=== PATIENT | female | born 1995 | race Caucasian/White ===

== ENCOUNTER 2016-12-07 12:06 | Emergency (ER) | payer BC ==
--- NOTE | 2016-12-07 12:31 | ED Physician Documentation ---
General Adult - HISTORIAN Historian: patient - HPI Stated Complaint: body aches, vomiting, nausea Chief Complaint: General Adult Additional Information: ache all over chills onset 3-4 days ago left work yesterday-had n/e then denies sexually active-no flu vaccine/works as bar useful or busser-some headache no cough left work yesterday am dt n/e fdlmp=sept Onset: days ago (2) Timing: still present Severity: moderate Further Comments: yes (does not eat breakfast---eats sleeps ok) Last known Well Code/Unknown Code: Known - ROS CONST: weakness. denies: weight loss EYES/ENT: denies: problems with vision CVS/RESP: denies: chest pain, shortness of breath, cough GI/: vomiting, nausea. denies: diarrhea, black stools MS/SKIN/LYMPH: none NEURO/PSYCH: headache - PAST HX Past History: none Other History: none Surgeries/Procedures: none Immunizations: UTD (no flu vaccine) Allergies/Adverse Reactions: Allergies Allergy/AdvReac Type Severity Reaction Status Date / Time No Known Allergies Allergy Verified 12/07/16 12:24 Home Medications: Ambulatory Orders Medication Instructions Recorded Ondansetron HCl Rapdis [Zofran Odt] 4 mg PO Q4 PRN #12 tab 12/07/16 - SOCIAL HX Smoking History: non-smoker Alcohol Use: none Drug Use: none - FAMILY HX Family History: Yes (parents siblings l/w) - VITAL SIGNS Vital Signs: Vital Signs Temp Pulse Resp BP Pulse Ox 98.4 F 64 16 127/65 99 12/07/16 12:19 12/07/16 12:19 12/07/16 12:19 12/07/16 12:19 12/07/16 12:19 - REVIEWED ASSESSMENTS Nursing Assessment Reviewed: Yes Vitals Reviewed: Yes ED Results Lab/Radiology - Orders Orders: ED Orders Category Date Time Status CBC/PLATELET/DIFF Routine Lab 12/07/16 Ordered CMP Routine Lab 12/07/16 Ordered INFLUENZA A&B Routine Lab 12/07/16 Uncollected SERUM HCG Routine Lab 12/07/16 Ordered URINALYSIS Routine Lab 12/07/16 Ordered General Adult Physical Exam - PHYSICAL EXAM GENERAL APPEARANCE: mild distress NEURO: oriented X3, CN's nml as tested Discharge Clincal Impression: Viral syndrome Prescriptions: Ondansetron HCl Rapdis [Zofran Odt] 4 mg PO Q4 PRN #12 tab PRN Reason: Nausea / Vomiting Referrals: Primary Doctor,No [Primary Care Provider] - 2 Days Condition: Good Disposition: 01 HOME, SELF-CARE Decision to Admit: NO Decision Time: 13:43
[2016-12-07] MEDS ORDERED: ONDANSETRON HCL/PF 4 MG/ 2ML VIAL ONE (12:36)
[2016-12-07] MEDS ORDERED: 0.9 % SODIUM CHLORIDE 1,000 ML IV ONE (12:36)
[2016-12-07] MEDS: 0.9 % SODIUM CHLORIDE 1,000 ML IV ONE (12:40)
[2016-12-07] MEDS: ONDANSETRON HCL/PF 4 MG/ 2ML VIAL IVP ONE (12:40)
[2016-12-07 12:56] LABS: BASOPHILS % 0.2 (0.0-1.5); EOSINOPHILS % 0.7 % (0.0-6.8); MEAN CORPUSCULAR HEMOGLOBIN 26.6 pg (28.0-34.0); MEAN CORPUSCULAR VOLUME 84.7 fl (80.0-100.0); MONOCYTES % 11.9 % (0.0-11.0); NEUTROPHILS # 3.6 # k/uL (1.4-7.7)
[2016-12-07 13:09] LABS: eGFR (African) > 60; eGFR (Non-African) > 60
[2016-12-07 13:56] VITALS: BP 99/53
== END 2016-12-07 13:45 | disposition home or self-care (01) ==
LOC: ED 12:06
DX: B34.9 Viral infection, unspecified (principal)
CPT/HCPCS: 80053; 84703; 85025; J2405; J7030; 87400; 96361; 96374; 99283; S1016

== ENCOUNTER 2016-12-19 23:45 | Emergency (ER) | payer BC ==
[2016-12-20] MEDS ORDERED: 0.9 % SODIUM CHLORIDE 250 ML IV.SOLN IV ONE (00:08)
[2016-12-20] MEDS ORDERED: 0.9 % SODIUM CHLORIDE 1,000 ML IV ONE ×2 (00:24→00:30)
[2016-12-20 00:30] LABS: BASOPHILS % 0.5 (0.0-1.5); EOSINOPHILS % 0.9 % (0.0-6.8); MEAN CORPUSCULAR HEMOGLOBIN 26.7 pg (28.0-34.0); MEAN CORPUSCULAR VOLUME 85.1 fl (80.0-100.0); MONOCYTES % 2.8 % (0.0-11.0); NEUTROPHILS # 9.7 # k/uL (1.4-7.7)
[2016-12-20 00:42] LABS: eGFR (African) > 60; eGFR (Non-African) > 60
--- NOTE | 2016-12-20 01:59 | ED Physician Documentation ---
General Adult - HISTORIAN Historian: patient - HPI Stated Complaint: ABD PAIN Chief Complaint: General Adult Additional Information: Daily diarrhea every time she eats, occasional vomiting, began 9 days ago. Has a lot on her mind so hasn't been eating or drinking much. Low abdominal pain bilaterally that is cramping in nature. LNMP within last 2-10 days (gives different stories). - ROS CONST: no problems - PAST HX Past History: other (previous similar episode a few weeks ago. ) Allergies/Adverse Reactions: Allergies Allergy/AdvReac Type Severity Reaction Status Date / Time No Known Allergies Allergy Verified 12/20/16 00:07 - SOCIAL HX Smoking History: non-smoker Alcohol Use: none Drug Use: none - FAMILY HX Family History: No - VITAL SIGNS Vital Signs: Vital Signs Temp Pulse Resp BP Pulse Ox 98.4 F 54 L 16 115/64 100 12/19/16 23:45 12/19/16 23:45 12/19/16 23:45 12/19/16 23:45 12/19/16 23:45 - REVIEWED ASSESSMENTS Nursing Assessment Reviewed: Yes Vitals Reviewed: Yes Progress - Progress Progress: 0200, Feels much better. ED Results Lab/Radiology - Lab Results Lab Results: Lab Results 12/20/16 12/20/16 12/20/16 00:17 00:17 00:01 WBC 12.60 K/ul H K/ul (4.00-12.00) RBC 4.51 M/ul M/ul (3.90-5.20) Hgb 12.1 g/dL g/dL (12.0-16.0) Hct 38.4 % % (34.5-46.5) MCV 85.1 fl fl (80.0-100.0) MCH 26.7 pg L pg (28.0-34.0) MCHC 31.4 g/dL g/dL (30.0-36.0) RDW 13.6 % % (11.3-14.3) Plt Count 275 K/mm3 K/mm3 (130-400) Neut % (Auto) 77.5 % % (39.0-79.0) Lymph % (Auto) 17.5 % % (16.0-50.0) [place] % (Auto) 2.8 % % (0.0-11.0) Eos % (Auto) 0.9 % % (0.0-6.8) Baso % (Auto) 0.5 (0.0-1.5) Neut # (Auto) 9.7 # k/uL H # k/uL (1.4-7.7) Lymph # (Auto) 2.2 # k/uL # k/uL (0.6-4.0) [place] # (Auto) 0.4 # k/uL # k/uL (0.0-0.9) Eos # (Auto) 0.1 # k/uL # k/uL (0.0-0.6) Baso # (Auto) 0.1 # k/uL # k/uL (0.0-0.5) Reactive Lymphs % 0.8 % % (0.0-5.0) Reactive Lymphs # 0.1 # k/uL # k/uL (0.0-0.8) Sodium 137 mmol/L mmol/L (137-145) Potassium 3.6 mmol/L mmol/L (3.5-5.1) Chloride 99 mmol/L mmol/L (98-107) Carbon Dioxide 27 mmol/L mmol/L (22-30) BUN 14 mg/dL mg/dL (7-17) Creatinine 0.70 mg/dL mg/dL (0.52-1.04) Estimated Creat Clear 123 Est GFR ( Amer) > 60 (60 - ) Est GFR (Non-Af Amer) > 60 (60 - ) Glucose 87 mg/dL mg/dL (74-106) Calcium 9.4 mg/dL mg/dL (8.4-10.2) Total Bilirubin 1.0 mg/dL mg/dL (0.2-1.3) AST 21 U/L U/L (15-46) ALT 19 U/L U/L (13-69) Alkaline Phosphatase 56 U/L U/L (38-126) Total Protein 7.8 g/dL g/dL (6.3-8.2) Albumin 4.6 g/dL g/dL (3.5-5.0) Lipase 95 U/L U/L (23-300) - Orders Orders: ED Orders Category Date Time Status Place IV Lock 1T Care 12/20/16 00:08 Active CBC/PLATELET/DIFF Routine Lab 12/20/16 00:17 Completed CMP Routine Lab 12/20/16 00:17 Completed DRUG SCREEN URINE MEDICAL ONLY Routine Lab 12/20/16 Ordered GIARDIA ANTIGEN, EIA, STOOL Stat Lab 12/20/16 Ordered HELICOBACTER PYLORI AG, STOOL Stat Lab 12/20/16 Ordered LIPASE Stat Lab 12/20/16 00:01 Completed URINALYSIS Routine Lab 12/20/16 Ordered URINE HCG Stat Lab 12/20/16 Ordered 0.9 % Sodium Chloride [Normal Saline] 1,000 ml Med 12/20/16 00:24 Discontinued IV .STK-MED 0.9 % Sodium Chloride [Normal Saline] 1,000 ml Med 12/20/16 00:30 Discontinued IV Q1H 0.9 % Sodium Chloride [Sodium Chloride] Med 12/20/16 00:08 Discontinued 1,000 ml IV 1T ONE General Adult Physical Exam - PHYSICAL EXAM GENERAL APPEARANCE: mild distress EENT: eye inspection normal, ENT inspection normal, pharynx normal, dry mucous membranes NECK: normal inspection, supple RESPIRATORY: no resp distress, breath sounds normal, other (scoliosis) CVS: reg rate & rhythm, heart sounds normal ABDOMEN: soft, normal bowel sounds, tenderness (mild, lower abdomen, yuliya) RECTAL: deferred BACK: normal inspection, no CVA tenderness SKIN: warm/dry, normal color EXTREMITIES: no evidence of injury NEURO: CN's nml as tested, motor nml, sensation nml Discharge Clincal Impression: Dehydration Diarrhea Qualifiers: Diarrhea type: unspecified type Qualified Code(s): R19.7 - Diarrhea, unspecified Referrals: Primary Doctor,No [Primary Care Provider] - 2 Days Additional Instructions: Bring the stool samples back to the front end java developer when you can. Drink more water. Condition: Good Disposition: 01 HOME, SELF-CARE Decision to Admit: NO Decision Time: 02:00
[2016-12-20 02:23] VITALS: BP 99/65
[2016-12-20 05:47] LABS: APPEARANCE,URINE CLEAR (CLEAR); COLOR,URINE AMBER (YELLOW); OCCULT BLOOD,URINE TRACE-INTACT (NEGATIVE); PH URINE 5.5 (5.0 - 8.0); URINE HCG NEGATIVE (NEGATIVE)
[2016-12-20 05:53] LABS: AMPHETAMINE NEGATIVE ng/mL (<1000); BARBITURATES NEGATIVE ng/mL (<300); CANNABINOIDS NEGATIVE ng/mL (< 50); COCAINE NEGATIVE ng/mL (<300); METHAMPHETAMINE NEGATIVE ng/mL (<1000); METHYLENEDIOXYMETHAMPHETAMINE NEGATIVE ng/mL (<500); OPIATES NEGATIVE ng/mL (<300)
== END 2016-12-20 02:10 | disposition home or self-care (01) ==
LOC: ED 23:45
DX: E86.0 Dehydration (principal); R19.7 Diarrhea, unspecified
CPT/HCPCS: 80053; 80320; 80377; 81002; 81025; 83690; 85025; J7030; 96360; 99283; G0480; G0481; S1016

== ENCOUNTER 2017-05-06 13:37 | Outpatient (CLI) | payer SELFPAY | END 2017-05-06 13:40 | LOC: LAB 13:37 | PROVIDERS: ATTEND Physician Assistant | DX: Z34.90 Encounter for supervision of normal pregnancy, unspecified, unspecified trimester (principal) | CPT/HCPCS: 36415; 84702 ==

== ENCOUNTER 2018-05-11 19:48 | Emergency (ER) | payer SELFPAY ==
[2018-05-11] MEDS ORDERED: ONDANSETRON HCL/PF 4 MG/ 2ML VIAL IVP ONE (20:05)
[2018-05-11] MEDS ORDERED: 0.9 % SODIUM CHLORIDE 1,000 ML IV ONE (20:05)
--- NOTE | 2018-05-11 20:09 | ED Physician Documentation ---
Nausea/Vomiting/Diarrhea - HISTORIAN Historian: patient - HPI Stated Complaint: body aches Chief Complaint: Nausea,Vomiting,Diarrhea Additional Information: Patient is a 23-year-old female who presents to the ER with c/o nausea, vo miting, and diarrhea. She states that she had some abdominal pain that started last night and she didn't think anything of it. But this morning she started having diarrhea x 4-5 episodes, nausea, and vomiting x 1. She feels dizzy when she sits up and states that she has not been able to drink enough fluids due to feeling sick. She has a 4 month old baby at home and is breast feeding. Onset: days ago (started last night with abdominal discomfort) Duration: gradual Timing: gradual onset Context: denies: out of country travel, bad food Severity: moderate Further Comments: no - Associated Symptoms Vomiting: mild (x 1 episode) Diarrhea: watery Abdominal Pain: cramping - ROS CONST: fever CVS/RESP: denies: chest pain, shortness of breath, cough GI/: none EYES/ENT: none MS/SKIN/LYMPH: denies: rash NEURO/PSYCH: other (dizzy) - PAST HX Past History: none Surgeries/Procedures: none Immunizations: influenza, UTD Allergies/Adverse Reactions: Allergies Allergy/AdvReac Type Severity Reaction Status Date / Time No Known Allergies Allergy Verified 12/20/16 00:07 Home Medications: Ambulatory Orders Medication Instructions Recorded Ondansetron HCl Rapdis [Zofran Odt] 4 mg PO Q6 PRN #15 tab 05/11/18 - SOCIAL HX Smoking History: non-smoker Alcohol Use: none Drug Use: none - FAMILY HX Family History: none - VITAL SIGNS Vital Signs: Vital Signs Temp Pulse Resp BP Pulse Ox 99.2 F 88 20 90/60 99 05/11/18 21:09 05/11/18 21:09 05/11/18 21:09 05/11/18 21:09 05/11/18 21:09 Progress - Progress Progress: Patient feels much better after 1 liter of IVF. She has had no vomiting or diarrhea. She will bean picker script for Zofran to take every 6-8 hours as needed for nausea. ED Results Lab/Radiology - Lab Results Lab Results: Lab Results 05/11/18 05/11/18 05/11/18 20:23 20:15 20:15 WBC 8.20 K/ul K/ul (4.00-12.00) RBC 4.49 M/ul M/ul (3.90-5.20) Hgb 12.8 g/dL g/dL (12.0-16.0) Hct 38.6 % % (34.5-46.5) MCV 86.0 fl fl (80.0-100.0) MCH 28.5 pg pg (28.0-34.0) MCHC 33.2 g/dL g/dL (30.0-36.0) RDW 13.2 % % (11.3-14.3) Plt Count 223 K/mm3 K/mm3 (130-400) Neut % (Auto) 87.6 % H % (39.0-79.0) Lymph % (Auto) 7.3 % L % (16.0-50.0) [place] % (Auto) 4.0 % % (0.0-11.0) Eos % (Auto) 0.8 % % (0.0-6.8) Baso % (Auto) 0.3 (0.0-1.5) Neut # (Auto) 7.2 # k/uL # k/uL (1.4-7.7) Lymph # (Auto) 0.6 # k/uL # k/uL (0.6-4.0) [place] # (Auto) 0.3 # k/uL # k/uL (0.0-0.9) Eos # (Auto) 0.1 # k/uL # k/uL (0.0-0.6) Baso # (Auto) 0.0 # k/uL # k/uL (0.0-0.5) Sodium 139 mmol/L mmol/L (136-145) Potassium 3.4 mmol/L L mmol/L (3.5-5.1) Chloride 103 mmol/L mmol/L (98-107) Carbon Dioxide 25 mmol/L mmol/L (22-30) BUN 10 mg/dL mg/dL (7-17) Creatinine 0.60 mg/dL mg/dL (0.52-1.04) Estimated Creat Clear 352 Est GFR ( Amer) > 60 (60 - ) Est GFR (Non-Af Amer) > 60 (60 - ) Glucose 103 mg/dL mg/dL (74-106) Calcium 9.1 mg/dL mg/dL (8.4-10.2) Total Bilirubin 1.1 mg/dL mg/dL (0.2-1.3) AST 22 U/L U/L (15-46) ALT 13 U/L U/L (13-69) Alkaline Phosphatase 85 U/L U/L (38-126) Total Protein 7.5 g/dL g/dL (6.3-8.2) Albumin 4.8 g/dL g/dL (3.5-5.0) Urine Color Yellow (YELLOW) Urine Appearance Clear (CLEAR) Urine pH 6.0 (5.0 - 8.0) Ur Specific [place] >=1.030 H (1.010-1.030) Urine Protein 1+ mg/dL H mg/dL (NEGATIVE) Urine Ketones 2+ mg/dL H mg/dL (NEGATIVE) Urine Occult Blood Negative (NEGATIVE) Urine Nitrite Negative (NEGATIVE) Urine Bilirubin 1+ H (NEGATIVE) Urine Urobilinogen 1.0 Eu Eu (0.2-1.0) Ur Leukocyte Esterase Negative (NEGATIVE) Urine Glucose Negative mg/dL mg/dL (NEGATIVE) - Orders Orders: ED Orders Category Date Time Status Place IV Lock 1T Care 05/11/18 20:05 Active CBC/PLATELET/DIFF Routine Lab 05/11/18 20:15 Completed CMP Routine Lab 05/11/18 20:15 Completed UA MACRO DIP ONLY Routine Lab 05/11/18 20:23 Completed 0.9 % Sodium Chloride [Normal Saline] 1,000 ml Med 05/11/18 20:05 Discontinued IV Q1H Ondansetron HCl/Pf [Zofran] Med 05/11/18 20:05 Discontinued 4 mg IVP NOW ONE Nausea Physical Exam - EXAM General Appearance: alert, mild distress EENT: eye inspection normal, ENT inspection normal, [place]IA TERESA, dry mucous membranes Neck: normal inspection, supple Respiratory: no resp distress, breath sounds normal CVS: heart sounds normal, equal pulses, tachycardia Abdomen: non-tender Back: non-tender Skin: warm/dry, pallor Extremities: non-tender, normal range of motion Neuro/Psych: oriented X3, CN's nml as tested, motor nml, sensation nml, cognition normal Discharge Clincal Impression: Dehydration, Nausea vomiting and diarrhea Prescriptions: Ondansetron HCl Rapdis [Zofran Odt] 4 mg PO Q6 PRN #15 tab PRN Reason: Nausea / Vomiting Referrals: Primary Doctor,No [Primary Care Provider] - 2 Days Additional Instructions: Increase fluid intake (no caffeine) Zofran 4 mg IV every 6-8 hrs as needed for nausea Start off with clear liquids and advance diet as tolerated Follow up with primary care provider in a couple of days if no improvement. Condition: Good Disposition: 01 HOME, SELF-CARE Decision to Admit: NO Decision Time: 22:20
[2018-05-11 20:28] LABS: BASOPHILS % 0.3 (0.0-1.5); EOSINOPHILS % 0.8 % (0.0-6.8); MEAN CORPUSCULAR HEMOGLOBIN 28.5 pg (28.0-34.0); NEUTROPHILS # 7.2 # k/uL (1.4-7.7)
[2018-05-11 20:47] LABS: eGFR (Non-African) > 60
[2018-05-11 21:10] VITALS: BP 90/60
[2018-05-11 21:42] LABS: APPEARANCE,URINE CLEAR (CLEAR); COLOR,URINE YELLOW (YELLOW); OCCULT BLOOD,URINE NEGATIVE (NEGATIVE)
== END 2018-05-11 21:09 | disposition home or self-care (01) ==
LOC: ED 19:48
DX: R11.2 Nausea with vomiting, unspecified (principal); R19.7 Diarrhea, unspecified; E86.0 Dehydration
CPT/HCPCS: 36415; 80053; 81002; 85025; 96360; 96374; 99283; 99284; J2405; J7030; S1016